=== PATIENT | male | born 1970 ===

== ENCOUNTER → 2023-01-08 15:17 | Outpatient (CLI) | payer BC, SELFPAY ==
--- NOTE | ~2023-01-08 | CT_ITS ---
EXAMINATION: CT soft tissue neck w con DATE: 01/08/2023 15:40 INDICATION: Hoarseness TECHNIQUE: Computed tomography (CT) of the neck was performed with 75 mL Omnipaque-350 intravenous co ntrast. Automated exposure control and iterative reconstruction technique were employed. The dose-ambika gth product was 432.60 mGy-cm. COMPARISON: None FINDINGS: Orbits are normal. The paranasal sinuses are clear. Visualized sinuses and mastoid aircells are well aerated. Bilateral thyroid, parotid and submitted with glands are normal and symmetric. There are sca ttered normal-sized lymph nodes in the neck, no lymphadenopathy. No masses identified. The vasculatu re is patent and normal in caliber. Airway is unremarkable. Glottis and epiglottis are normal. Mild e mphysema with minimal biapical pleural-parenchymal scarring. Small calcified nodules in the superior segment of the left lower lobe consistent with old granulomatous disease. Superior mediastinum is unr emarkable with no abnormal lesions identified along the course of the bilateral recurrent laryngeal n erves. Mild upper thoracic levocurvature. Mild cervical spondylosis. IMPRESSION: 1. Unremarkable CT of the soft tissues of the neck. No abnormal masses, pathologically enlarged lymph adenopathy or other etiology identified for reported hoarseness. Reviewed, dictated and finalized at location A. IMPRESSION: 1. Unremarkable CT of the soft tissues of the neck. No abnormal masses, patholo gically enlarged lymphadenopathy or other etiology identified for reported hoar seness.
== END ==
PROVIDERS: PCP Otolaryngology; Visit Provider Otolaryngology
DX: R49.0 Dysphonia (principal)
CPT/HCPCS: 70491; Q9967